=== PATIENT | female | born 1970 | race Caucasian/White ===

== ENCOUNTER → 2016-06-15 | Outpatient (CLI) | payer OTHER | END | disposition home or self-care (01) | LOC: CFH 08:23 | PROVIDERS: ATTEND Obstetrics & Gynecology | DX: Z12.31 Encounter for screening mammogram for malignant neoplasm of breast (principal) | CPT/HCPCS: G0202 ==

== ENCOUNTER 2019-03-27 14:15 | Outpatient (CLI) | payer OTHER | END 2019-03-27 23:59 | disposition home or self-care (01) | LOC: CFH 14:15 | PROVIDERS: ATTEND Family Medicine | DX: Z12.31 Encounter for screening mammogram for malignant neoplasm of breast (principal) | CPT/HCPCS: 77063; 77067 ==

== ENCOUNTER 2019-11-01 07:45 | Inpatient (IN) | payer OTHER ==
[~2019-11-01] VITALS: Ht 172.7 cm; Wt 80.0 kg
[2019-11-01] MEDS ORDERED: ONDANSETRON 2MG/ML, 2ML ONE ×2 (08:19→08:52)
[2019-11-01] MEDS ORDERED: ONDANSETRON 2MG/ML, 2ML IVPush ONE (08:30)
[2019-11-01] MEDS ORDERED: SODIUM CHLORIDE 0.9% 1,000ML IVBOLUS ONE (08:30)
[2019-11-01 08:31] LABS: BASOPHILS # (AUTO) 0.05 x10^3/uL (0-0.1); BASOPHILS % (AUTO) 0 % (0-1); EOSINOPHILS # (AUTO) 0.01 x10^3/uL (0-0.4); EOSINOPHILS % (AUTO) 0 % (1-7); LYMPHOCYTES # (AUTO) 1.76 x10^3/uL (1-3.4); LYMPHOCYTES % (AUTO) 15 % (22-44); MD NO; MEAN CORPUSCULAR HEMOGLOBIN 31.4 pg (27.0-34.8); MEAN CORPUSCULAR HGB CONC 32.9 g/dL (32.4-35.8); MEAN CORPUSCULAR VOLUME 95.4 fL (80-100); MEAN PLATELET VOLUME 8.1 fL (7.4-10.4); MONOCYTES # (AUTO) 0.96 x10^3/uL (0.2-0.8); MONOCYTES % (AUTO) 8 % (2-9); NEUTROPHILS # (AUTO) 8.85 x10^3/uL (1.8-6.8); NEUTROPHILS % (AUTO) 76 % (42-75); PLATELET COUNT 253 x10^3/uL (130-400); RED BLOOD COUNT 5.45 x10^6/uL (3.82-5.3); RED CELL DISTRIBUTION WIDTH 13.1 % (9.6-15.2)
--- NOTE | 2019-11-01 08:35 | NUR ---
IV PLACED, LABS DRAWN, NS BOLUS AND ZOFRAN GIVEN FOR ACTIVE VOMITING. AT BS, CALL LIGHT WITHIN REACH.
[2019-11-01 08:41] LABS: ALBUMIN 4.7 g/dL (3.4-5.0); ANION GAP 12 mmol/L (5-15); CALCIUM 10.4 mg/dL (8.5-10.1); CHLORIDE 95 mmol/L (98-107); CREATININE 0.85 mg/dL (0.55-1.02)
[2019-11-01] MEDS ORDERED: NS + 40MEQ KCL 1,000 ML IV ONE ×2 (08:44→08:51)
[2019-11-01] MEDS ORDERED: POTASSIUM CHLORIDE 20 MEQ TAB.ER.PRT ONE (08:51)
[2019-11-01] MEDS ORDERED: POTASSIUM CHLORIDE 20 MEQ TAB.ER.PRT PO ONE (09:00)
--- NOTE | 2019-11-01 09:08 | NUR ---
PT AND FAMILY UPDATED ON POC. PT CONTINUES TO VOMIT, 2ND DOSE OF ZOFRAN PROVIDED. POTASSIUM INFUSING PER ERP ORDER, HOLD ON PO POTASSIUM UNTIL VOMITING CEASES. ADD ON ORDER FOR EKG. CALL LIGHT WITHIN REACH. AT BS.
[2019-11-01] MEDS ORDERED: LEVO88TA2 PO (09:11)
[2019-11-01] MEDS ORDERED: SELE200C PO (09:11)
[2019-11-01] MEDS ORDERED: VIT D 3 PO (09:11)
[2019-11-01] MEDS ORDERED: METOCLOPRAMIDE 5 MG/ML, 2ML IVPush ONE (09:30)
[2019-11-01] MEDS ORDERED: METOCLOPRAMIDE 5 MG/ML, 2ML ONE (09:46)
--- NOTE | 2019-11-01 09:50 | NUR ---
PT MEDICATED WITH REGLAN PER ERP ORDER FOR PERSISTENT N/V. CONTINUE TO MONITOR, VSS/UPDATED IN COMPUTER.
--- NOTE | 2019-11-01 10:30 | NUR ---
NO EMESIS X 30 MINUTES, PT ABLE TO TAKE POTASSIUM TABLETS PER ORDER.
[2019-11-01] MEDS ORDERED: POLYETHYLENE GLYCOL 17 GM PACKET PO PRN (11:00)
[2019-11-01] MEDS ORDERED: SENNA/DOCUSATE TABLET PO PRN (11:00)
[2019-11-01] MEDS ORDERED: POTASSIUM CHLORIDE 40 MEQ in SODIUM CHLORIDE 0.9% 500 ML IV ONE (11:00)
[2019-11-01] MEDS ORDERED: ONDANSETRON ODT 4 MG PO PRN (11:00)
[2019-11-01] MEDS ORDERED: morphine SULFATE 10 MG/ML, 1ML IVPush PRN (11:00)
[2019-11-01] MEDS ORDERED: ACETAMINOPHEN 325 MG TABLET PO PRN (11:00)
[2019-11-01] MEDS ORDERED: PROMETHAZINE 25 MG/ML, 1ML ONE (11:27)
[2019-11-01 11:33] LABS: ALANINE AMINOTRANSFERASE 27 U/L (12-78); ALBUMIN 4.6 g/dL (3.4-5.0); BILIRUBIN, DIRECT 0.3 mg/dL (0.1-0.2)
[2019-11-01 11:35] LABS: ALKALINE PHOSPHATASE 60 U/L (45-117); BILIRUBIN,INDIRECT 1.1 mg/dL (0.0-2.0); BILIRUBIN,TOTAL 1.4 mg/dL (0.2-1.0); TOTAL PROTEIN 8.3 g/dL (6.4-8.2)
[2019-11-01] MEDS: PROMETHAZINE 25 MG/ML, 1ML IM PRN ×2 (11:37→18:03)
--- NOTE | 2019-11-01 11:37 | NUR ---
ORDER OBTAINED FROM [facility] FOR [facility]ENERGAN 12.5 IM Q 6HRS PRN N/V. PT WITH PERSISTENT N/V WITHOUT RELIEF WITH ZOFRAN AND REGLAN. PHENERGAN GIVEN. VSS. PT AND INFORMED OF POC, CHANGE IN ADMIT TO MEDICAL. CONTINUE TO AWAIT ROOM ASSIGNMENT
[2019-11-01 11:53] LABS: ANION GAP 11 mmol/L (5-15); CALCIUM 9.1 mg/dL (8.5-10.1); CHLORIDE 100 mmol/L (98-107); CREATININE 0.71 mg/dL (0.55-1.02)
[2019-11-01] MEDS: ONDANSETRON 2MG/ML, 2ML IVPush PRN (12:42)
[2019-11-01] MEDS: LEVOTHYROXINE 88 MCG TABLET PO SCH (12:56)
[2019-11-01 13:00] VITALS: BP 147/66
[2019-11-01] MEDS: METOCLOPRAMIDE 5 MG/ML, 2ML IVPush PRN ×2 (15:50→22:05)
[2019-11-01] MEDS: LACTATED RINGERS 1,000 ML IV SCH (17:50)
[2019-11-01 18:20] LABS: MICROSCOPIC INDICATED
[2019-11-01 18:51] VITALS: BP 163/91
[2019-11-02 00:36] VITALS: BP 163/84
[2019-11-02] MEDS: LACTATED RINGERS 1,000 ML IV SCH ×3 (01:13→17:17)
[2019-11-02 05:42] LABS: BASOPHILS # (AUTO) 0.03 x10^3/uL (0-0.1); BASOPHILS % (AUTO) 0 % (0-1); EOSINOPHILS # (AUTO) 0.04 x10^3/uL (0-0.4); EOSINOPHILS % (AUTO) 0 % (1-7); LYMPHOCYTES # (AUTO) 1.96 x10^3/uL (1-3.4); LYMPHOCYTES % (AUTO) 18 % (22-44); MD NO; MEAN CORPUSCULAR HEMOGLOBIN 31.7 pg (27.0-34.8); MEAN CORPUSCULAR HGB CONC 33.3 g/dL (32.4-35.8); MEAN CORPUSCULAR VOLUME 95.1 fL (80-100); MEAN PLATELET VOLUME 8.8 fL (7.4-10.4); MONOCYTES # (AUTO) 1.03 x10^3/uL (0.2-0.8); MONOCYTES % (AUTO) 9 % (2-9); NEUTROPHILS # (AUTO) 7.97 x10^3/uL (1.8-6.8); NEUTROPHILS % (AUTO) 72 % (42-75); PLATELET COUNT 204 x10^3/uL (130-400); RED BLOOD COUNT 4.52 x10^6/uL (3.82-5.3); RED CELL DISTRIBUTION WIDTH 13.1 % (9.6-15.2)
[2019-11-02 05:47] LABS: ALANINE AMINOTRANSFERASE 22 U/L (12-78); ALBUMIN 3.4 g/dL (3.4-5.0); ANION GAP 4 mmol/L (5-15); CALCIUM 8.4 mg/dL (8.5-10.1); CHLORIDE 106 mmol/L (98-107); CREATININE 0.56 mg/dL (0.55-1.02)
[2019-11-02 05:57] LABS: ALKALINE PHOSPHATASE 48 U/L (45-117); TOTAL PROTEIN 6.6 g/dL (6.4-8.2)
[2019-11-02 08:00] VITALS: BP 153/84
[2019-11-02 14:15] VITALS: BP 128/86
[2019-11-02] MEDS ORDERED: POTASSIUM CHLORIDE 20 MEQ TAB.ER.PRT PO ONE (14:30)
[2019-11-02] MEDS: ONDANSETRON 2MG/ML, 2ML IVPush PRN (18:10)
[2019-11-02] MEDS: PROMETHAZINE 25 MG/ML, 1ML IM PRN ×2 (19:06→23:48)
[2019-11-02 20:05] VITALS: BP 174/101
[2019-11-03] MEDS: LACTATED RINGERS 1,000 ML IV SCH ×2 (00:41→07:57)
[2019-11-03 00:49] VITALS: BP 154/75
[2019-11-03] MEDS: LEVOTHYROXINE 88 MCG TABLET PO SCH (06:16)
[2019-11-03 07:35] LABS: BASOPHILS # (AUTO) 0.06 x10^3/uL (0-0.1); BASOPHILS % (AUTO) 1 % (0-1); EOSINOPHILS # (AUTO) 0.03 x10^3/uL (0-0.4); EOSINOPHILS % (AUTO) 0 % (1-7); LYMPHOCYTES # (AUTO) 2.14 x10^3/uL (1-3.4); LYMPHOCYTES % (AUTO) 25 % (22-44); MD NO; MEAN CORPUSCULAR HEMOGLOBIN 31.6 pg (27.0-34.8); MEAN CORPUSCULAR HGB CONC 33.1 g/dL (32.4-35.8); MEAN CORPUSCULAR VOLUME 95.8 fL (80-100); MEAN PLATELET VOLUME 8.1 fL (7.4-10.4); MONOCYTES # (AUTO) 0.75 x10^3/uL (0.2-0.8); MONOCYTES % (AUTO) 9 % (2-9); NEUTROPHILS # (AUTO) 5.74 x10^3/uL (1.8-6.8); NEUTROPHILS % (AUTO) 66 % (42-75); PLATELET COUNT 211 x10^3/uL (130-400); RED BLOOD COUNT 4.59 x10^6/uL (3.82-5.3); RED CELL DISTRIBUTION WIDTH 12.5 % (9.6-15.2)
[2019-11-03 07:42] LABS: ALANINE AMINOTRANSFERASE 36 U/L (12-78); ALBUMIN 3.6 g/dL (3.4-5.0); ANION GAP 7 mmol/L (5-15); CALCIUM 9.1 mg/dL (8.5-10.1); CHLORIDE 106 mmol/L (98-107); CREATININE 0.57 mg/dL (0.55-1.02)
[2019-11-03 07:45] LABS: ALKALINE PHOSPHATASE 48 U/L (45-117); BILIRUBIN,TOTAL 1.1 mg/dL (0.2-1.0); TOTAL PROTEIN 6.6 g/dL (6.4-8.2)
[2019-11-03 08:28] VITALS: BP 133/84
[2019-11-03] MEDS ORDERED: ONDA4TAB7 PO (09:55)
[2019-11-03] MEDS ORDERED: PROM25TA10 PO (09:55)
[2019-11-03] MEDS ORDERED: PROM50SU7 PR (09:55)
[2019-11-03 09:56] LABS: CLOSTRIDIUM DIFFICILE ANTIGEN NEGATIVE; CLOSTRIDIUM DIFFICILE TOXIN NEGATIVE (Negative)
== END 2019-11-03 12:07 | disposition home or self-care (01) | DRG 641 ==
LOC: ED 09:50 → EDIP 09:51 → 3N 12:25 → DCLOUNGE 11-03 11:58
PROVIDERS: ADMIT Family Medicine; ATTEND Family Medicine
DX: E87.6 Hypokalemia (principal); K92.2 Gastrointestinal hemorrhage, unspecified; D72.829 Elevated white blood cell count, unspecified; E87.1 Hypo-osmolality and hyponatremia; E03.9 Hypothyroidism, unspecified; E86.0 Dehydration; J30.9 Allergic rhinitis, unspecified; K02.9 Dental caries, unspecified; Z87.440 Personal history of urinary (tract) infections; Z90.710 Acquired absence of both cervix and uterus; Z88.0 Allergy status to penicillin
CPT/HCPCS: 36415; 80048; 80053; 80076; 81001; 82040; 83690; 83735; 84132; 84145; 84443; 85025; 87040; 87086; 87324; 93005; G0378; J2405; J2550; J3480; J2765; J7030; J7040; J7120